=== PATIENT | female | born 1965 | race Two or more races ===

== ENCOUNTER 2021-09-08 15:14 | Emergency (ER) | payer OTHER ==
[~2021-09-08] VITALS: Ht 144.8 cm; Wt 61.2 kg
== END 2021-09-08 23:50 | disposition home or self-care (01) ==
LOC: ER 15:14
DX: R11.2 Nausea with vomiting, unspecified (principal); Z20.822 Contact with and (suspected) exposure to COVID-19

== ENCOUNTER 2024-08-21 09:11 | Outpatient (CLI) | payer OTHER | END 2024-08-21 09:14 | disposition home or self-care (01) | LOC: NUCLEAR 09:11 | PROVIDERS: ATTEND Internal Medicine Cardiovascular Disease | DX: I10 Essential (primary) hypertension (principal) ==

== ENCOUNTER 2024-08-24 09:26 | Outpatient (CLI) | payer OTHER | END 2024-08-24 09:27 | disposition home or self-care (01) | LOC: NUCLEAR 09:26 | PROVIDERS: ATTEND Internal Medicine Cardiovascular Disease | DX: R07.9 Chest pain, unspecified (principal) ==